=== PATIENT | male | born 1975 ===

== ENCOUNTER 2018-01-25 12:41 | Outpatient (REF) | payer MEDICAID, SELFPAY ==
[2018-01-25 20:44] LABS: HCT 40.6 % (40.0-50.0); HGB 13.3 g/dL (13.5-17.5); Mean Corp. HGB Concentration 32.8 g/dL (32.0-36.0); Mean Corpuscular Hemoglobin 31.1 pg (27.0-33.0); Mean Corpuscular Volume 95.1 fL (80-95); Mean Platelet Volume 9.8 fL (8.0-11.0); Platelet Count 293 x1000/uL (130-400); RBC 4.27 m/cumm (4.50-6.00); RBC Distribution Width 13.6 % (11.8-14.1); White Blood Cell Count 7.33 k/cumm (4.4-10.8)
[2018-01-25 20:56] LABS: ALT 55 U/L (12-78); AST 31 U/L (15-37); Albumin 3.8 g/dL (3.4-5.0); Alkaline Phosphatase 74 U/L (46-116); Anion Gap 7.3 mmol/L (3-11); BUN 14 mg/dL (7-18); Bilirubin, Total 0.5 mg/dL (0.2-1.0); CO2 32.7 mmol/L (21.0-32.0); CREATININE 0.78 mg/dL (0.70-1.30); Calcium 9.2 mg/dL (8.5-10.1); Chloride 98 mmol/L (98-107); Glucose 96 mg/dL (70-100); Potassium 4.8 mmol/L (3.5-5.1); Sodium 138 mmol/L (136-145); Total Protein 7.9 g/dL (6.4-8.2)
[2018-01-28 11:02] LABS: Hepatitis C Ab w Rflx HCV PCR Negative (NEGAT)
[2018-01-28 11:56] LABS: HIV-1/2 Ag & Ab Screen Negative (NEGAT)
== END 2018-01-25 13:01 ==
LOC: NCHCN 12:41
PROVIDERS: Visit Provider Nurse Practitioner Family
DX: F10.10 Alcohol abuse, uncomplicated (principal); F41.8 Other specified anxiety disorders; F11.21 Opioid dependence, in remission; Z11.4 Encounter for screening for human immunodeficiency virus [HIV]; Z11.59 Encounter for screening for other viral diseases
CPT/HCPCS: 80053; 85027; 86803; 87389; 87491; 87591

== ENCOUNTER 2018-01-31 20:59 | Outpatient (REF) | payer MEDICAID, SELFPAY ==
[2018-02-04 16:26] LABS: Chlamydia Result Negative; GC Result Negative; Specimen Description URINE
== END 2018-01-31 21:19 ==
LOC: NCHCN 20:59
PROVIDERS: Visit Provider Nurse Practitioner Family
DX: Z11.3 Encounter for screening for infections with a predominantly sexual mode of transmission (principal)
CPT/HCPCS: 87491; 87591

== ENCOUNTER 2023-11-19 09:17 | Outpatient (REF) | payer MEDICAID, SELFPAY ==
[2023-11-19 15:21] LABS: Abs Immature Grans 0.01 10^3/uL (0.0-0.06); Absolute Basophil Count 0.03 10^3/uL (0.0-0.2); Absolute Eosinophil Count 0.05 10^3/uL (0.0-0.7); Absolute Lymphocyte Count 1.26 10^3/uL (1.2-3.4); Absolute Monocyte Count 0.52 10^3/uL (0.1-0.8); Absolute Neutrophil Count 2.53 10^3/uL (1.2-6.7); Basophils % 0.7 %; Eosinophils % 1.1 %; HCT 36.6 % (40.0-50.0); HGB 12.3 g/dL (13.5-17.5); Immature Grans % 0.2 %; Lymphocytes % 28.6 %; MCH 34.1 pg (27.0-33.0); MCHC 33.6 % (32.0-36.0); MCV 101 fL (80-95); MPV 8.8 fL (8.0-11.0); Monocytes % 11.8 %; Neutrophils % 57.6 %; Platelet Count 269 10^3/uL (130-400); RBC 3.61 10^6/uL (4.36-5.78); RDW 12.3 % (11.8-14.1); RDW-SD 46.4 fL
[2023-11-19 15:24] LABS: ESR 16 mm/hr (0-15)
[2023-11-19 15:44] LABS: ALT 42 U/L (16-63); AST 70 U/L (15-37); Albumin 3.5 g/dL (3.4-5.0); Alkaline Phosphatase 124 U/L (46-116); Anion Gap 9.1 mmol/L (3-11); BUN 7 mg/dL (7-18); Bilirubin, Total 0.43 mg/dL (0.2-1.0); CO2 28.9 mmol/L (21.0-32.0); CREATININE 0.7 mg/dL (0.70-1.30); Calcium 8.7 mg/dL (8.5-10.1); Calculated LDL 48 mg/dL (<100); Chloride 101 mmol/L (98-107); Cholesterol 143 mg/dL (<200); Estimated GFR 112.25 (mL/min/1.73m2); Glucose 92 mg/dL (74-106); HDL Cholesterol 88 mg/dL (40-60); Sodium 139 mmol/L (136-145); Total Protein 7.8 g/dL (6.4-8.2); Triglyceride 36 mg/dL (<150)
[2023-11-19 15:54] LABS: C-Reactive Protein < 0.50 mg/dL (<or=0.5)
[2023-11-20 11:03] LABS: Lyme Ab w Rflx to Lyme Confirm Positive (Negative)
[2023-11-20 16:17] LABS: Lyme IgG Ab Positive (Negative); Lyme IgM Ab Negative (Negative)
[2023-11-21 16:22] LABS: Iron 100 ug/dL (65-175); Total Iron Binding Capacity 347 ug/dL (250-450); Transferrin Sat 29 % (20-55)
[2023-11-21 16:59] LABS: Ferritin 67 ng/mL (26-388)
[2023-11-21 22:31] LABS: Folate 17.3 ng/mL (See Note); Vitamin B12 610 pg/mL (211-911)
== END 2023-11-19 09:18 | disposition home or self-care (01) ==
LOC: NCHCN 09:17
PROVIDERS: Visit Provider Nurse Practitioner Family
DX: M25.562 Pain in left knee (principal); Z13.220 Encounter for screening for lipoid disorders
CPT/HCPCS: 80053; 80061; 85652; 86617; 82607; 82728; 82746; 83540; 83550; 85025; 86140; 86618

== ENCOUNTER 2024-07-22 18:03 | Outpatient (REF) | payer MEDICAID, SELFPAY ==
[2024-07-22 16:27] LABS: TSH 1.48 uIU/mL (0.36-3.74)
== END 2024-07-22 18:04 | disposition home or self-care (01) ==
LOC: NCHCN 18:03
PROVIDERS: Visit Provider Nurse Practitioner Family
DX: R63.4 Abnormal weight loss (principal)
CPT/HCPCS: 84443

== ENCOUNTER 2024-10-27 14:34 | Outpatient (REF) | payer MEDICAID, SELFPAY ==
[2024-10-27 14:50] LABS: Abs Immature Grans 0.01 10^3/uL (0.0-0.06); HCT 35.4 % (40.0-50.0); HGB 12.1 g/dL (13.5-17.5); Immature Grans % 0.2 %; MCH 35.1 pg (27.0-33.0); MCHC 34.2 % (32.0-36.0); MCV 103 fL (80-95); MPV 9.6 fL (8.0-11.0); Platelet Count 259 10^3/uL (130-400); RBC 3.45 10^6/uL (4.36-5.78); RDW 12.4 % (11.8-14.1); RDW-SD 47.0 fL; WBC 4.75 10^3/uL (4.4-10.8)
[2024-10-27 15:07] LABS: ALT 64 U/L (16-63); AST 79 U/L (15-37); Albumin 4.0 g/dL (3.4-5.0); Alkaline Phosphatase 79 U/L (46-116); Anion Gap 5.7 mmol/L (3-11); BUN 9 mg/dL (7-18); Bilirubin, Total 0.5 mg/dL (0.2-1.0); CO2 30.3 mmol/L (21.0-32.0); Calcium 9.1 mg/dL (8.5-10.1); Chloride 101 mmol/L (98-107); Estimated GFR 111.56 (mL/min/1.73m2); Glucose 89 mg/dL (74-106); Potassium 4.6 mmol/L (3.5-5.1); Sodium 137 mmol/L (136-145); TSH 1.28 uIU/mL (0.36-3.74); Total Protein 7.6 g/dL (6.4-8.2)
[2024-10-28 08:46] LABS: Iron 105 ug/dL (65-175)
[2024-10-28 09:13] LABS: Ferritin 101 ng/mL (26-388); Vitamin B12 835 pg/mL (193-986)
== END 2024-10-27 14:35 | disposition home or self-care (01) ==
LOC: NCHCN 14:34
PROVIDERS: PCP Nurse Practitioner Family; Visit Provider Nurse Practitioner Family
DX: R63.4 Abnormal weight loss (principal); D64.9 Anemia, unspecified
CPT/HCPCS: 80053; 82607; 82728; 83540; 84443; 85025